=== PATIENT | male | born 1995 ===

== ENCOUNTER 2022-01-29 03:05 | Emergency (ER) | payer BC, OTHER ==
[2022-01-29] MEDS ORDERED: fentaNYL 100 MCG/2 ML SDV ONE ×2 (03:29→03:47)
[2022-01-29] MEDS ORDERED: Lactated Ringers 1,000 ML IV SCH ×2 (03:30→05:00)
[2022-01-29] MEDS ORDERED: fentaNYL 100 MCG/2 ML SDV IVPUSH STA ×4 (03:33→04:34)
[2022-01-29] MEDS ORDERED: Ondansetron 4 MG/2 ML SDV IVPUSH ONE ×2 (03:34→04:33)
[2022-01-29 03:37] LABS: ESTIMATED GFR 86 mL/min (>60)
[2022-01-29] MEDS ORDERED: Iopamidol 755 Mg/ML 100 ML Bottle IV ONE (04:35)
== END 2022-01-29 05:07 | disposition hospice, home (50) ==
LOC: FB.ED 03:05
DX: S42.021A Displaced fracture of shaft of right clavicle, initial encounter for closed fracture (principal); S32.501A Unspecified fracture of right pubis, initial encounter for closed fracture; S37.812A Contusion of adrenal gland, initial encounter; S40.211A Abrasion of right shoulder, initial encounter; S50.811A Abrasion of right forearm, initial encounter; S30.811A Abrasion of abdominal wall, initial encounter; J98.4 Other disorders of lung; R74.01 Elevation of levels of liver transaminase levels; F10.920 Alcohol use, unspecified with intoxication, uncomplicated; V27.4XXA Motorcycle driver injured in collision with fixed or stationary object in traffic accident, initial encounter; Y92.410 Unspecified street and highway as the place of occurrence of the external cause
CPT/HCPCS: 32551; 36415; 70450; 71045; 71260; 72125; 72128; 72131; 74177; 80053; 80307; 82150; 83690; 84484; 85025; 85610; 96361; 96374; 96375; 96376; 99285-25; J2405; J3010; J7120; Q9967